=== PATIENT | female | born 1990 | race Caucasian/White ===

== ENCOUNTER 2018-04-09 10:39 | Emergency (ER) | payer OTHER ==
[~2018-04-09] VITALS: Ht 165.1 cm; Wt 63.5 kg
== END 2018-04-09 17:49 | disposition home or self-care (01) ==
LOC: ER 10:39
DX: K29.60 Other gastritis without bleeding (principal); Z33.1 Pregnant state, incidental

== ENCOUNTER 2018-05-03 21:38 | Emergency (ER) | payer OTHER ==
[~2018-05-03] VITALS: Ht 165.1 cm; Wt 63.5 kg
[2018-05-04] MEDS ORDERED: PEPCID40 MG PO (08:17)
[2018-05-04] MEDS ORDERED: ZOFRAN ODT4 MG PO (08:17)
[2018-05-04] MEDS ORDERED: ESGIC 50-325-41 EACH PO ×2 (08:27)
== END 2018-05-04 08:39 ==
LOC: ER 21:38
DX: O21.0 Mild hyperemesis gravidarum (principal); R51 Headache; Z34.81 Encounter for supervision of other normal pregnancy, first trimester

== ENCOUNTER 2018-10-20 15:56 | Outpatient (CLI) | payer OTHER ==
[~2018-10-20 15:56] MED LIST: ESGIC 50-325-41 EACH PO; PEPCID40 MG PO; ZOFRAN ODT4 MG PO
== END 2018-10-21 18:34 | disposition home or self-care (01) ==
LOC: OBS/DEL 15:56
DX: O26.893 Other specified pregnancy related conditions, third trimester (principal); G43.809 Other migraine, not intractable, without status migrainosus; Z34.83 Encounter for supervision of other normal pregnancy, third trimester

== ENCOUNTER 2018-11-19 07:30 | Outpatient (CLI) | payer OTHER ==
[2018-11-19] MEDS ORDERED: PRENATAL 19 TA1 EAC1 PO (10:09)
[2018-11-19] MEDS ORDERED: FOLIC ACID0.4 MG PO (10:10)
[2018-11-19] MEDS ORDERED: INTEGRA F CAPS1 EACH PO (10:16)
== END 2018-11-19 11:10 | disposition home or self-care (01) ==
LOC: OBS/DEL 07:30
DX: O35.8XX0 Maternal care for other (suspected) fetal abnormality and damage, not applicable or unspecified (principal); Z34.03 Encounter for supervision of normal first pregnancy, third trimester; O47.1 False labor at or after 37 completed weeks of gestation

== ENCOUNTER 2018-11-29 11:02 | Inpatient (IN) | payer OTHER ==
[~2018-11-29] VITALS: Ht 165.1 cm; Wt 79.8 kg
[~2018-11-29 11:02] MED LIST changes: +FOLIC ACID0.4 MG PO; +INTEGRA F CAPS1 EACH PO; +PRENATAL 19 TA1 EAC1 PO
== END 2018-12-01 10:12 | disposition home or self-care (01) | DRG 798 ==
LOC: OB/GYN 11:02 → LDR 11:02 → OB/GYN 16:12
PROVIDERS: ADMIT Obstetrics & Gynecology
PROC: 10E0XZZ Delivery of Products of Conception, External Approach (ICD-10-PCS; principal; 2018-11-29)
PROC: 0W8NXZZ Division of Female Perineum, External Approach (ICD-10-PCS; 2018-11-29)
PROC: 4A1HXCZ Monitoring of Products of Conception, Cardiac Rate, External Approach (ICD-10-PCS; 2018-11-29)
PROC: 3E033VJ Introduction of Other Hormone into Peripheral Vein, Percutaneous Approach (ICD-10-PCS; 2018-11-29)
PROC: 0UL70ZZ Occlusion of Bilateral Fallopian Tubes, Open Approach (ICD-10-PCS; 2018-11-30)
DX: O80 Encounter for full-term uncomplicated delivery (principal); Z37.0 Single live birth; Z3A.39 39 weeks gestation of pregnancy; Z30.2 Encounter for sterilization

== ENCOUNTER 2022-06-27 09:04 | Emergency (ER) | payer OTHER ==
[~2022-06-27] VITALS: Ht 165.1 cm; Wt 68.9 kg
== END 2022-06-27 12:48 | disposition home or self-care (01) ==
LOC: ER 09:04
DX: J03.90 Acute tonsillitis, unspecified (principal); Z20.822 Contact with and (suspected) exposure to COVID-19